=== PATIENT | female | born 1980 | race Caucasian/White ===

== ENCOUNTER → 2016-07-24 | Outpatient (CLI) | payer BC ==
[~2016-07-24] MED LIST: CETICHW4 PO; PRENTAB26 PO
== END | disposition home or self-care (01) ==
LOC: C.PAPS 12:06
PROVIDERS: ATTEND Obstetrics & Gynecology
DX: Z01.419 Encounter for gynecological examination (general) (routine) without abnormal findings (principal)

== ENCOUNTER → 2016-08-01 | Outpatient (CLI) | payer BC ==
--- NOTE | 2016-08-02 08:27 | MAMMOGRAPHY REPORT ---
UNILATERAL RIGHT DIGITAL DIAGNOSTIC MAMMOGRAM TOMOSYNTHESIS WITH CAD AND TARGETED RIGHT ULTRASOUND: 08/01/2016 CLINICAL HISTORY: The patient reports right nipple inversion, which was intermittent for several yea rs but has been constantly inverted for the last few months. She stopped breast feeding approximate ly 7 months ago. She denies any associated palpable lump or nipple discharge. TECHNIQUE: Breast tomosynthesis in addition to standard 2D mammography was performed. Current study was also evaluated with a Computer Aided Detection (CAD) system. Right CC and MLO 2-D and tomosynt hesis images were obtained. COMPARISON: No prior exams were available for comparison. BREAST COMPOSITION: There are scattered areas of fibroglandular density in the right breast. FINDINGS: There are no suspicious masses, calcifications, or areas of architectural distortion noted in the right breast. Specifically, no mass or other suspicious abnormality is seen in the right garcia bareolar region. Scattered benign-appearing punctate and round calcifications are noted. The right nipple is inverted. Targeted ultrasound was performed of the right subareolar breast. Sonographically normal tissue is seen, without evidence of a mass or other suspicious sonographic abnormality. IMPRESSION: ACR BI-RADS CATEGORY 2: BENIGN, TARGETED ULTRASOUND ACR BI-RADS CATEGORY 2: BENIGN No suspicious mass or other suspicious abnormality seen within the right subareolar breast, with no etiology for right nipple inversion evident. There is no mammographic or targeted sonographic evide nce of malignancy. Recommend clinical follow-up, and recommend routine bilateral screening mammogra ms studding at the age of 41 unless otherwise clinically indicated. The patient has been verbally notified of the results. Approximately 10% of breast cancers are not detected with mammography. A negative mammographic repor t should not delay biopsy if a clinically suggestive mass is present. Rivka Segovia M.D. ah/:08/01/2016 10:04:46 Medical Office Receptionist: Heaven BUCIO(T[place])(Bart), [facility] letter sent: Normal 1/2 BI-RADS Code: ACR BI-RADS Category 2: Benign Ultrasound BI-RADS: ACR BI-RADS Category 2: Benign
== END | disposition home or self-care (01) ==
LOC: C.MAMM 09:25
PROVIDERS: ATTEND Obstetrics & Gynecology
DX: N64.59 Other signs and symptoms in breast (principal)